=== PATIENT | female | born 1960 | race Caucasian/White ===

== ENCOUNTER → 2024-12-19 | Outpatient (CLI) | payer MEDICARE, OTHER ==
[2024-12-19 11:12] LABS: ALBUMIN 4.3 g/dL (3.4-4.8)
[2024-12-19 11:13] LABS: CALCIUM 9.3 mg/dL (8.3-10.5)
[2024-12-19 11:14] LABS: TOTAL PROTEIN 7.5 g/dL (6.2-8.1)
[2024-12-19 11:16] LABS: TOTAL BILIRUBIN 0.5 mg/dL (0.2-1.2)
[2024-12-20 00:19] LABS: HEPATITIS C VIRUS ANTIBODY Nonreactive (Nonreactiv)
== END ==
LOC: LAB 09:57
PROVIDERS: Family Medicine
DX: Z13.220 Encounter for screening for lipoid disorders (principal); Z13.1 Encounter for screening for diabetes mellitus; Z11.59 Encounter for screening for other viral diseases; Z11.4 Encounter for screening for human immunodeficiency virus [HIV]; M81.0 Age-related osteoporosis without current pathological fracture